=== PATIENT | female | born 1950 | race Caucasian/White ===

== ENCOUNTER 2022-12-10 15:47 | Inpatient (IN) | payer OTHER ==
[~2022-12-10] VITALS: Ht 162.6 cm; Wt 82.1 kg
--- NOTE | 2022-12-10 15:50 | NUR ---
RECEIVED PT 72 YRS FEMALe C/O Genralized weekness from home by margo c/o elevated temp yesterday .
--- NOTE | 2022-12-10 16:20 | NUR ---
INSERTED ANGO CATHETER G 20 ON RT AC BLOOD DROW AND SENT TO LAB
--- NOTE | 2022-12-10 16:25 | NUR ---
TO CT SCAN
[2022-12-10] MEDS ORDERED: IV NS 0.9% 1,000 ML BAG IV ONE ×2 (16:30→18:00)
[2022-12-10] MEDS ORDERED: ONDANSETRON HCL/PF 4 MG/2 ML VIAL IVP ONE (16:30)
[2022-12-10] MEDS ORDERED: ONDANSETRON HCL/PF 4 MG/2 ML VIAL ONE (16:36)
[2022-12-10 17:02] LABS: BASOPHILS % (AUTO) 0.1 % (0.0-2.0); EOSINOPHILS % (AUTO) 0.1 % (0.0-6.0); HEMATOCRIT 31 % (33-45); LYMPHOCYTES # (AUTO) 0.9 K/uL (0.8-4.8); LYMPHOCYTES % (AUTO) 5.7 % (20.0-44.0); MEAN CORPUSCULAR HGB CONC 32 g/dl (31.0-36.0); MEAN CORPUSCULAR VOLUME 85 fL (82-100); MONOCYTES # (AUTO) 0.9 K/uL (0.1-1.30); MONOCYTES % (AUTO) 5.5 % (2.0-12.0); NEUTROPHILS # (AUTO) 13.8 K/uL (1.8-8.9); NEUTROPHILS % (AUTO) 88.6 % (43.0-81.0); PLATELET COUNT (AUTO) 446 K/uL (150-450); RED BLOOD CELL COUNT(AUTO) 3.66 MIL/uL (4.0-5.2); WHITE BLOOD COUNT (AUTO) 15.5 K/uL (4.3-11.0)
[2022-12-10 17:12] LABS: CALCIUM, SERUM 9.1 mg/dL (8.5-10.1); CARBON DIOXIDE 24 mmol/L (21-32); CHLORIDE 102 mmol/L (98-107); CREATININE 0.8 mg/dL (0.6-1.3); GLUCOSE 178 mg/dL (74-106); POTASSIUM 3.4 mmol/L (3.5-5.1); SODIUM SERUM 134 mmol/L (136-145); UREA NITROGEN, BLOOD 12 mg/dL (7-18)
[2022-12-10 17:18] LABS: ALANINE AMINOTRANSFERASE 26 U/L (12-78); ALBUMIN 2.9 g/dL (3.4-5.0); ALKALINE PHOSPHATASE 113 U/L (46-116); ASPARTATE AMINOTRANSFERASE 24 U/L (15-37); BILIRUBIN,DIRECT 0.1 mg/dL (0.0-0.2); BILIRUBIN,TOTAL 0.5 mg/dL (0.2-1.0); LIPASE 100 U/L (73-393); TOTAL PROTEIN, SERUM 7.4 g/dL (6.4-8.2)
--- NOTE | 2022-12-10 17:30 | NUR ---
angella and FLU JOAQUINAP SENT TO LAB
[2022-12-10] MEDS ORDERED: CEFTRIAXONE 1 G in IV D5W 50 ML IV ONE (18:00)
[2022-12-10] MEDS ORDERED: CEFTRIAXONE 1GM BAG (ER ONLY) 50 ML IV ONE (18:19)
[2022-12-10] MEDS ORDERED: POTASSIUM CHLORIDE 20 MEQ TAB.PRT.SR PO ONE ×2 (18:24→18:30)
--- NOTE | 2022-12-10 19:38 | NUR ---
ALYSSA WILL RN
[2022-12-10] MEDS ORDERED: ACETAMINOPHEN 325 MG TABLET PO PRN (20:00)
[2022-12-10] MEDS ORDERED: MAG HYDROX/AL HYDROX/SIMETH 30 ML UDC PO PRN (20:00)
[2022-12-10] MEDS ORDERED: Z GUARD REMEDY 4 OZ OINT TP PRN (20:00)
[2022-12-10] MEDS ORDERED: IV NS 0.9% 1,000 ML IV PRN (20:00)
[2022-12-10] MEDS ORDERED: *INSULIN REGULAR(HUMULIN R)HUM 100 UNIT/ML VIAL SQ PRN (20:00)
[2022-12-10] MEDS ORDERED: HYDROCODONE/APAP 5/325MG TABLET PO PRN (20:00)
[2022-12-10] MEDS ORDERED: DEXTROSE 50%-WATER 50 ML DISP.SYRIN IV PRN (20:00)
[2022-12-10] MEDS ORDERED: ONDANSETRON HCL/PF 4 MG/2 ML VIAL IVP PRN (20:00)
[2022-12-10] MEDS ORDERED: MAGNESIUM HYDROXIDE 30 ML UDC PO PRN (20:00)
[2022-12-10 21:04] LABS: BILIRUBIN,URINE NEGATIVE (NEGATIVE); COLOR,URINE YELLOW (YELLOW); LEUKOCYTE ESTERASE ,URINE NEGATIVE (NEGATIVE); NITRITE, URINE NEGATIVE (NEGATIVE); PH,URINE 5.5 (5.0-8.0); PROTEIN,URINE 1+ mg/dl (NEGATIVE); UGLUCOSE NEGATIVE (NEGATIVE); UROBILINOGEN,URINE 0.2 EU/dL (0.2)
[2022-12-10 21:31] LABS: BACTERIA,URINE None seen /HPF (None Seen); MUCUS,URINE Few /LPF (None Seen); SQUAMOUS EPITHELIAL CELL,UR 0-2 /HPF (None Seen); WBC,URINE 0-2 /HPF (0-3)
--- NOTE | 2022-12-10 21:42 | NUR ---
[id number] Addendum: 12/10/22 at 2144 by TBANZON [id number]
--- NOTE | 2022-12-10 21:45 | NUR ---
RN RECEIVING PATIENT FROM ER PATIENT RECEIVED FROM ER VIA [facility]. PATIENT STABLE. A/OX4. NO S/S OF DISTRESS, BREATHING WITHOUT DIFFICULTY ON ROOM AIR. MILD COUGH NOTED. RAC #20 INTACT AND PATENT. TELE READS 98. PATIENT ORIENTED TO THE UNIT. PATIENT GIVEN CALL HAY AND INSTRUCTED ON ITS USE. TELE MONITOR SUCCESSFULLY APPLIED TO PATIENT. PATIENT EDUCATION GIVEN REGARDING MONITOR. NO PAIN NOTED AT THIS TIME. SAFETY MEASURES IN PLACE: BED LOCKED AND AT LOWEST POSITION, MID-FOWLERS, RAILS UP X2, CALL HAY WITHIN REACH. WILL CONTINUE TO MONITOR PATIENT.
[2022-12-10] MEDS ORDERED: ENOXAPARIN SODIUM 40 MG/0.4 ML DISP.SYRIN SQ SCH (21:56)
[2022-12-10] MEDS: BLOOD SUGAR DIAGNOSTIC 1 EACH STRIP VI SCH (22:00)
--- NOTE | 2022-12-10 22:01 | NUR ---
REPORT GIVEN TO MING CLARK FOR VIPIN
--- NOTE | 2022-12-10 23:00 | NUR ---
RN NOTE PATIENT COMPLAINED OF EXCESSIVE COUGHING. PATIENT HAS BEEN COUGHING BUT IT IS UNPRODUCTIVE. ON-CALL, JONA, CONTACTED. ROBITUSSIN ORDER GIVEN. PATIENT STABLE; WILL CONTINUE TO MONITOR PATIENT.
[2022-12-11] VITALS (7 sets, daily range): BP systolic 136–149; BP diastolic 68–90
[2022-12-11] MEDS: GUAIFENESIN/D-METHORPHAN HB 5 ML UDC PO PRN ×2 (03:22→14:03)
[2022-12-11 06:28] LABS: BASOPHILS % (AUTO) 0.1 % (0.0-2.0); EOSINOPHILS % (AUTO) 0.9 % (0.0-6.0); HEMATOCRIT 28 % (33-45); HEMOGLOBIN 9.2 g/dL (11.5-14.8); LYMPHOCYTES # (AUTO) 1.5 K/uL (0.8-4.8); LYMPHOCYTES % (AUTO) 14.8 % (20.0-44.0); MEAN CORPUSCULAR HGB CONC 33 g/dl (31.0-36.0); MEAN CORPUSCULAR VOLUME 84 fL (82-100); MONOCYTES % (AUTO) 9.8 % (2.0-12.0); NEUTROPHILS # (AUTO) 7.5 K/uL (1.8-8.9); NEUTROPHILS % (AUTO) 74.4 % (43.0-81.0); PLATELET COUNT (AUTO) 386 K/uL (150-450); WHITE BLOOD COUNT (AUTO) 10.1 K/uL (4.3-11.0)
[2022-12-11] MEDS: BLOOD SUGAR DIAGNOSTIC 1 EACH STRIP VI SCH ×4 (06:39→22:07)
[2022-12-11] MEDS: INSULIN REGULAR, HUMAN 100 UNIT/ML 3 ML VIAL SQ PRN ×2 (06:40→17:27)
--- NOTE | 2022-12-11 07:00 | NUR ---
RN CLOSING NOTE PATIENT AWAKE IN BED. A/OX4. NO S/S OF DISTRESS, BREATHING WITHOUT DIFFICULTY ON ROOM AIR. RAC #20 INTACT AND PATENT. TELE READS SR 90. SAFETY MEASURES IN PLACE: BED LOCKED AND AT LOWEST POSITION, MID-FOWLERS, RAILS UP X2, CALL HAY WITHIN REACH. WILL ENDORSE TO NEXT SHIFT FOR VIPIN.
[2022-12-11 07:04] LABS: CALCIUM, SERUM 8.8 mg/dL (8.5-10.1); CREATININE 0.7 mg/dL (0.6-1.3); PHOSPHORUS 3.2 mg/dL (2.5-4.9); POTASSIUM 3.9 mmol/L (3.5-5.1)
--- NOTE | 2022-12-11 07:18 | NUR ---
SHOT CORE DRILL OPERATOR HELPER OPENING NOTE RECEIVED PATIENT AWAKE IN BED WITH HOB ELEVATED, ALERT/ORIENTED X 4, ON ROOM AIR WITH NO S/S OF DISTRESS OR SOB NOTED, BREATHING EVEN AND UNLABORED. ON TELEMONITORING READING SINUS TACHY AT UP TO 110 BPM. IV ACCESS ON RAC G#20 SALINE LOCKED, PATENT AND FLUSHING WELL. PATIENT REFUSED IVF FOR NOW. DENIES PAIN NOR DISCOMFORT AT THIS TIME. SAFETY MEASURES IN PLACE: CALL LIGHT WITHIN REACH, SIDE RAILS UP X 3, BED LOCKED AND IN LOWEST POSITION, HOB ELEVATED. WILL CONTINUE TO MONITOR.
[2022-12-11] MEDS: ENOXAPARIN SODIUM 40 MG/0.4 ML DISP.SYRIN SQ SCH (08:15)
--- NOTE | 2022-12-11 10:10 | NUR ---
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 PT ALSO HAS SOME ITCHING WITH RED RASH TO BREASTFOLDS, PRESENT ON ADMISSION. PT REQUESTS TOENAIL TRIM AND STATES SHE SOMETIMES HAS DIFFICULTY FINDING TIME TO TAKE A SHOWER DUE TO HER JOB. DR ANDINO AND DR JONES CALLED FOR SURGICAL AND DPM CONSULTS. DISCUSSED SKIN PROTECTION RECOMMENDATIONS WITH NURSING STAFF. LOTRIMIN CREAM ORDERED FOR BREASTFOLDS. MD IN AGREEMENT WITH PLAN OF CARE.
--- NOTE | 2022-12-11 10:53 | NUR ---
RN NOTES - PT WAS ABLE TO TOLERATE PT EXERCISES
--- NOTE | 2022-12-11 12:14 | NUR ---
EDUARDO NOTES - TELEMETRY DISCONTINUED Addendum: 12/11/22 at 1440 by GIGI MORGAN RN KATIA PT - DISREGARD
[2022-12-11] MEDS ORDERED: [UNRECOGNIZED DRUG - REMARK] PO (13:58)
--- NOTE | 2022-12-11 14:05 | NUR ---
RN NOTES - JUANY DM 5ML WAS GIVEN BY VANNESSA NEWSOME PER PT'S REQUEST PRN WHILE HE WAS INSIDE INTERVIEWING THE PATIENT ABOUT HER HOME MEDICATIONS. ACKNOWLEDGED
--- NOTE | 2022-12-11 16:55 | NUR ---
RN NOTES - FOLLOWED UP WITH DUNCAN MULLER FOR THE ANTIBIOTICS. ACKNOWLEDGED,
[2022-12-11] MEDS: CLOTRIMAZOLE 1% 15 GM TUBE TP SCH (17:09)
[2022-12-11] MEDS ORDERED: CEFEPIME 1 GM in IV D5W 50 ML IV SCH (17:30)
--- NOTE | 2022-12-11 17:55 | NUR ---
RN NOTES - CEFIPIME IV ATB STILL NOT AVAILABLE. WILL ENDORSE TO CALENDER ROLL PRESS OPERATOR NURSE.
[2022-12-11] MEDS: CEFEPIME 2 GM in IV D5W 100 ML IV SCH (19:14)
--- NOTE | 2022-12-11 19:25 | NUR ---
METAL EXPEDITER CLOSING NOTE PATIENT AWAKE IN BED WITH HOB ELEVATED, ALERT/ORIENTED X 4 WITH FRIEND AT BEDSIDE, STILL ON ROOM AIR WITH NO S/S OF DISTRESS OR SOB NOTED, BREATHING EVEN AND UNLABORED. ON TELEMONITORING READING SINUS TACHY AT UP TO 120 BPM. STILL WITH IV ACCESS ON RAC G#20 SALINE LOCKED, PATENT AND FLUSHING WELL WITH STANDBY NS SET UP FOR ANTIBIOTIC. NO PAIN NOR DISCOMFORT AT THIS TIME. ALL NEEDS MET, ALL DUE MEDS GIVEN. SAFETY MEASURES MAINTAINED: CALL LIGHT WITHIN REACH, SIDE RAILS UP X 3, BED LOCKED AND IN LOWEST POSITION, HOB ELEVATED. ENDORSED TO TECHNICAL MAINTENANCE TECHNICIAN NURSE.
--- NOTE | 2022-12-11 19:30 | NUR ---
DECK HAND OPENING NOTE RECEIVED PATIENT FROM AM NURSE; AWAKE IN BED WITH HOB ELEVATED, ALERT/ORIENTED X 4 WITH FRIEND AT BEDSIDE, STABLE ON ROOM AIR WITH NO S/S OF DISTRESS OR SOB NOTED, BREATHING EVENLY AND UNLABORED; ON TELE MONITORING READING SINUS RHYTHM TO SINUS TACHYCARDIA; WITH IV ACCESS ON RAC G#20 SALINE LOCKED, PATENT AND FLUSHING WELL; NO PAIN NOR DISCOMFORT AT THIS TIME; ENCOURAGED VERBALIZATION OF NEEDS; SAFETY MEASURES MAINTAINED, CALL LIGHT WITHIN REACH, SIDE RAILS UP X 3, BED LOCKED AND IN LOWEST POSITION; WILL CONTINUE TO MONITOR THROUGHOUT SHIFT
--- NOTE | 2022-12-11 23:00 | NUR ---
ELECTRON BEAM OPERATOR NOTE PATIENT COMPLAINED OF MILD HEADACHE AND ASKED FOR PAIN MEDICATION; TYLENOL PRN GIVEN ORDERED; PATIENT TOLERATED WELL; WILL CONTINUE TO MONITOR
[2022-12-12 04:00] VITALS: BP 152/90
[2022-12-12 05:11] VITALS: BP 156/98
[2022-12-12] MEDS: CEFEPIME 2 GM in IV D5W 100 ML IV SCH (05:21)
[2022-12-12] MEDS: BLOOD SUGAR DIAGNOSTIC 1 EACH STRIP VI SCH ×3 (06:49→16:42)
[2022-12-12] MEDS ORDERED: SILVER NITRATE APPLICATOR 1 EA BOX TP SCH (07:30)
[2022-12-12] MEDS ORDERED: LIDOCAINE 1%-EPI 1:200,000 SDV 10 ML VIAL IJ ONE (07:30)
--- NOTE | 2022-12-12 07:30 | NUR ---
NOC ENGINEER CLOSING NOTE PATIENT IN BED, ALERT/ORIENTED X 4, STABLE ON ROOM AIR WITH NO S/S OF DISTRESS OR SOB NOTED, BREATHING EVENLY AND UNLABORED; ON TELE MONITORING READING SINUS RHYTHM 80S BPM; WITH IV ACCESS ON RAC G#20 SALINE LOCKED, PATENT AND RUNNING WITH NORMAL SALINE; NO PAIN OR DISCOMFORT AT THIS TIME; ADMINISTERED MEDICATIONS PRESCRIBED; PATIENT'S NEEDS ATTENDED; MONITORED PATIENT ACCORDINGLY; SAFETY MEASURES MAINTAINED, CALL LIGHT WITHIN REACH, SIDE RAILS UP X 3, BED LOCKED AND IN LOWEST POSITION; WILL ENDORSE TO AM NURSE FOR VIPIN
--- NOTE | 2022-12-12 07:30 | NUR ---
GOLD LEAF GILDER OPENING NOTE RECEIVED PATIENT AWAKE IN BED WITH HOB ELEVATED, ALERT/ORIENTED X 4. STABLE ON ROOM AIR WITH NO S/S OF DISTRESS OR SOB NOTED, BREATHING EVENLY AND UNLABORED; ON TELE MONITORING READING NORMAL SINUS RHYTHM HR 90.WITH IV ACCESS ON RAC G#20 SALINE LOCKED, PATENT AND FLUSHING WELL; NO PAIN NOR DISCOMFORT AT THIS TIME; ENCOURAGED VERBALIZATION OF NEEDS; SAFETY MEASURES MAINTAINED, CALL LIGHT WITHIN REACH, SIDE RAILS UP X 3, BED LOCKED AND IN LOWEST POSITION; WILL CONTINUE TO MONITOR THROUGHOUT SHIFT
[2022-12-12 08:00] VITALS: BP 170/94
[2022-12-12] MEDS: ENOXAPARIN SODIUM 40 MG/0.4 ML DISP.SYRIN SQ SCH (08:26)
--- NOTE | 2022-12-12 08:27 | NUR ---
HOLD LOVENOX DUE TO NOSE BIOPSY PROCEDURE
[2022-12-12 08:32] LABS: CREATININE 0.7 mg/dL (0.6-1.3); MAGNESIUM 2.2 mg/dL (1.8-2.4); PHOSPHORUS 3.8 mg/dL (2.5-4.9)
[2022-12-12 08:38] LABS: BASOPHILS % (AUTO) 0.3 % (0.0-2.0); EOSINOPHILS % (AUTO) 2.9 % (0.0-6.0); HEMATOCRIT 30 % (33-45); HEMOGLOBIN 9.8 g/dL (11.5-14.8); LYMPHOCYTES # (AUTO) 1.3 K/uL (0.8-4.8); MEAN CORPUSCULAR HGB CONC 33 g/dl (31.0-36.0); MEAN CORPUSCULAR VOLUME 85 fL (82-100); MONOCYTES # (AUTO) 0.7 K/uL (0.1-1.30); MONOCYTES % (AUTO) 8.1 % (2.0-12.0); NEUTROPHILS # (AUTO) 6.4 K/uL (1.8-8.9); NEUTROPHILS % (AUTO) 73.7 % (43.0-81.0); PLATELET COUNT (AUTO) 445 K/uL (150-450); RED BLOOD CELL COUNT(AUTO) 3.52 MIL/uL (4.0-5.2); WHITE BLOOD COUNT (AUTO) 8.6 K/uL (4.3-11.0)
[2022-12-12] MEDS: CLOTRIMAZOLE 1% 15 GM TUBE TP SCH ×2 (09:07→16:24)
[2022-12-12] MEDS ORDERED: LEVOFLOXACIN (250MG) 250 MG TABLET PO SCH (10:00)
--- NOTE | 2022-12-12 11:30 | NUR ---
LUKAS SCHWARTZ BEHAVIORAL GENETICIST AT BEDSIDE
--- NOTE | 2022-12-12 12:20 | NUR ---
ISRAEL COMMERCIAL ELECTRICIAN AT BEDSIDE
--- NOTE | 2022-12-12 13:44 | NUR ---
CONVEYOR MONITOR NOTES: SUPERVISOR LATHING AT BEDSIDE.
[2022-12-12] MEDS ORDERED: VALSARTAN 80 MG TABLET PO SCH (15:00)
[2022-12-12] MEDS ORDERED: VALS80TA31 PO (16:10)
[2022-12-12] MEDS ORDERED: LEVO250T59 PO (16:10)
[2022-12-12] MEDS ORDERED: SILV100S2 TP (16:10)
[2022-12-12] MEDS ORDERED: CLOT15CR35 TP (16:10)
[2022-12-12 16:15] VITALS: BP 158/90
--- NOTE | 2022-12-12 18:14 | NUR ---
PATIENT IS A/O X3. AMBULATORY W/ SBA. INDEPENDENT WITH REPOSITIONING. PATIENT IS TOLERATING DIET WELL. S/P NOSE BIOPSY. DSICHARGE INSTRUCTIONS AND HEALTH TEACHINGS GIVEN, PT VERBALIZED UNDERSTANDING. PATIENT WAS PICKED UP BY HER FRIEND, DEAN. ' PATIENT WAS REQUESTING FOR AN EXCUSE LETTER FROM WORK. UNFORTUNATELY MIGUEL IS GONE FOR THE DAY. I LEFT A AND GIVE PT INSTRUCTIONS TO CALL THE NUMBER THAT I PROVIDED TOMORROW.
== END 2022-12-12 18:22 | disposition home or self-care (01) | DRG 194 ==
LOC: ER 15:51 → TELE 21:49 → MED 12-12 10:24
PROVIDERS: ADMIT Internal Medicine; ATTEND Registered Nurse
PROC: 0JB10ZX Excision of Face Subcutaneous Tissue and Fascia, Open Approach, Diagnostic (ICD-10-PCS; principal; 2022-12-12)
DX: J15.9 Unspecified bacterial pneumonia (principal); E87.1 Hypo-osmolality and hyponatremia; N13.30 Unspecified hydronephrosis; J98.11 Atelectasis; I50.32 Chronic diastolic (congestive) heart failure; E87.6 Hypokalemia; Z20.822 Contact with and (suspected) exposure to COVID-19; C44.90 Unspecified malignant neoplasm of skin, unspecified; I11.0 Hypertensive heart disease with heart failure; R73.9 Hyperglycemia, unspecified; E86.0 Dehydration; J32.9 Chronic sinusitis, unspecified; J40 Bronchitis, not specified as acute or chronic; Z85.820 Personal history of malignant melanoma of skin; E66.9 Obesity, unspecified; Z68.31 Body mass index [BMI] 31.0-31.9, adult; R00.0 Tachycardia, unspecified
CPT/HCPCS: 36415; 70220-TC; 71045-TC; 80048-TC; 80076-TC; 81001; 82962-TC; 83605-TC; 83690-TC; 83735-TC; 84100-TC; 84484-TC; 85025-TC; 87040-TC; 87081-TC; 88305-TC; 93307-TC; 97110-TC; 97116-TC; 97530-TC; A4223; G0378; J0692; J0696; J1650; J1815; J2405; J3490; J7030; J7060